=== PATIENT | female | born 1935 | race Caucasian/White ===

== ENCOUNTER 2019-01-31 16:17 | Emergency (ER) | payer MEDICARE, OTHER ==
--- NOTE | 2019-01-31 17:11 | CT ---
CT OF THE PELVIS WITHOUT IV CONTRAST INDICATION: Fall with tailbone plane pain COMPARISON: None FINDINGS: Pelvis: Small and large bowel: Bilateral retained stool within the colon Appendix:Not definitely seen Bladder: Normal. Rectal and perirectal soft tissues:Normal. Reproductive structures: Surgically absent Free fluid in pelvis: No free fluid is evident. Lymphadenopathy pelvis: No lymphadenopathy is evident. Osseous structures: There is diffuse osteopenia. No acute fracture or subluxation demonstrated. Ther e is scattered degenerative and osteoarthritic changes. Soft tissues:Normal. IMPRESSION: 1. No acute fracture or subluxation demonstrated. Diffuse osteopenia.
--- NOTE | 2019-01-31 17:16 | CT ---
CT LUMBAR SPINE NONCONTRAST: 01/31/19 HISTORY: Back injury. FINDINGS: There is severe leftward convexed rotatory scoliotic curvature. Vertebral body heights are maintained . Multilevel degenerative changes. Disc space narrowing, most pronounced at the L2-3 level. Posterior disc bulges most pronounced at the L4-5 and L5-S1 levels. Minimal degenerative spondylolisthesis at the lumbosacral junction. No acute fracture or dislocation. Osseous structures are demineralized. Jace cification within the arterial structures. IMPRESSION: Prominent degenerative changes of the lumbar spine. No acute osseous abnormalities are demonstrated. No evidence of compression fracture. Osteoporosis. Atherosclerosis. POS: TPC
--- NOTE | 2019-01-31 17:33 | RAD ---
XR Hand Lt 3 View STANDARD: 01/31/2019 4:34 PM CLINICAL INDICATION: Fall with hand pain COMPARISON: None. FINDINGS: Bones: There is diffuse osteopenia. Joints: There is scattered osteoarthrosis most severe at the first CMC joint. There is chondrocalcino sis involving the radiocarpal and ulnocarpal joints. Soft Tissue: There are scattered vascular calcifications. IMPRESSION: No acute osseous abnormality..
[2019-01-31] MEDS ORDERED: HYDROcodone/Acetaminophen 5/325 mg Tablet ONE (17:34)
[2019-01-31] MEDS ORDERED: Adacel (T-DAP) 0.5 ML SYRINGE ONE (17:34)
== END 2019-01-31 18:22 | disposition home or self-care (01) ==
LOC: ERS 16:17
DX: S30.0XXA Contusion of lower back and pelvis, initial encounter (principal); S60.222A Contusion of left hand, initial encounter; S50.312A Abrasion of left elbow, initial encounter; I48.91 Unspecified atrial fibrillation; I10 Essential (primary) hypertension; Z87.891 Personal history of nicotine dependence; Z79.899 Other long term (current) drug therapy; Z79.01 Long term (current) use of anticoagulants; Z23 Encounter for immunization; W18.30XA Fall on same level, unspecified, initial encounter
CPT/HCPCS: 72131; 72192; 90471; 90715; 93005

== ENCOUNTER 2019-03-28 11:27 | Inpatient (IN) | payer MEDICARE, OTHER ==
[2019-03-28] MEDS ORDERED: Furosemide 40 MG/4 ML VIAL ONE (12:08)
--- NOTE | 2019-03-28 12:11 | RAD ---
CHEST 1 VIEW: Date: 03/28/19 HISTORY: Shortness of breath. COMPARISON: 06/28/06. FINDINGS: Prominent cardiomegaly. Prominent proximal pulmonary artery segments bilaterally raising concern for chronic pulmonary artery hypertension. Bilateral costophrenic angle blunting, evidence for pleural ef fusion/pleural thickening. Increased linear and interstitial markings bilaterally with evidence for s ome hyperinflation. No evidence for confluent lobar pneumonia. IMPRESSION: Cardiomegaly with scattered linear and interstitial markings bilaterally and costophrenic angle blunt ing. Conceivably this could all represent chronic lung disease, although some degree of acute interst itial edema or even pneumonitis is a consideration. Depending upon concern, short-term follow-up to i nclude PA and lateral chest might be of benefit. POS: TPC
[2019-03-28 13:06] LABS: #Basophils 0.1 thou/uL (0.0-0.2); #Eosinphils 0.1 thou/uL (0.0-0.7); #Monocytes 0.5 thou/uL (0.11-0.59); #Neutrophils 3.5 thou/uL (1.40-6.50); %Basophils 1.1 % (0.0-1.0); %Eosinophils 2.2 % (0.0-10.0); %Lymphocytes 19.2 % (21.0-51.0); %Monocytes 10.1 % (0.0-10.0); %Neutrophils 67.3 % (42.0-75.0); Hemoglobin 12.5 g/dL (12.0-16.0); Mean Corpuscular HGB CONC 31.9 g/dL (32.0-36.0); Mean Corpuscular Hemoglobin 35.3 pg (27.0-31.0); Mean Platelet Volume 9.1 fL (7.4-10.4); Platelet Count 127 thou/uL (130-400); RBC Distribution Width 13.1 % (11.5-14.5); Red Blood Cell (RBC) Count 3.54 mill/uL (4.20-5.40); White Blood Cell (WBC) Count 5.2 thou/uL (4.8-10.8)
[2019-03-28 13:09] LABS: INR-International Normal Ratio 2.6; PTT 31.3 SEC (22.9-36.1); Prothrombin Time 27.5 SEC (12.0-14.7)
[2019-03-28 13:17] LABS: MDiff Complete? YES; Macrocytosis SLIGHT = 6-15 cells (100X) (0-5/hpf); Platelet Morphology Comment Appears Decreased
[2019-03-28 13:22] LABS: ALT (SGPT) 15 U/L (8-55); AST (SGOT) 24 U/L (5-34); Albumin 3.3 g/dL (3.4-4.8); Alkaline Phosphatase 86 U/L (40-110); Anion Gap 13 mmol/L (10-20); BUN (Urea Nitrogen) 19 mg/dL (9.8-20.1); Bilirubin, Total 1.3 mg/dL (0.2-1.2); Calc. Creatinine Clearance 0 mL/min (70-130); Calcium 8.9 mg/dL (7.8-10.44); Carbon Dioxide 31 mmol/L (23-31); Chloride 105 mmol/L (98-107); Estimated GFR-MDRD 56; Globulin 3.7 g/dL (2.4-3.5); Glucose 113 mg/dL (83-110); Potassium 3.6 mmol/L (3.5-5.1); Sodium 145 mmol/L (136-145)
--- NOTE | 2019-03-28 14:58 | PDOC.HHP ---
Hospitalist HPI - History of Present Illness Shortness of breath; weight gain History of Present Illness: 83 yo with Anton on coumadin presented to ER due to shortness of breath. 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 She has home health. She was found to have crepitations in her lungs and recommended to go to ER. She reports worsening SOB x 2 week. SOB is with minimal exertion and relieved with rest and sitting down. No orthopnea or PND. Reports 10 lb weight gain over the past 2 weeks. Reports swelling in her legs. No sick contacts or recent travel history. Uses a walker to ambulate. No fever, chills, CP. Reports palpitations with exertion. No lightheadedness, burning or pain with urination. No rash or bruising. No wheezing. Reports cough with cream sputum. No blood in sputum, stool or urine. Reports constipation. No nausea, vomiting or diarrhea. No abd. pain. She has never seen a naturalization examiner. ED Course: She has been given 20 mg IV lasix with 2L urine output so far. Hospitalist ROS - Review of Systems All other systems reviewed; all pertinent +/- noted in HPI/Subj Hospitalist History - Past Medical History Source: patient, family Cardiac: reports: AFIB, HTN - Past Surgical History Past Surgical History: reports: Hysterectomy, Total Knee Replacement (bilateral) - Family History Family History: reports: no pertinent history (reviewed) - Social History Smoking Status: Former smoker Tobacco Type: cigarettes Alcohol: reports: None Drugs: reports: none Living Situation: With Family Activity level: uses cane/walker - Exam General Appearance: awake alert, ill appearing Eye: PERRL, anicteric sclera ENT: normocephalic atraumatic, no oropharyngeal lesions, moist mucosa Neck: supple, symmetric, no thyromegaly, no lymphadenopathy Heart: no gallops, no rubs, normal peripheral pulses, irregular Heart - other findings: 2+ bilateral pitting pedal edema Respiratory: no wheezes, normal chest expansion (not using accessory muscles of respiration), no tachypnea, rales (crepitations in biltaral lower lobes) Gastrointestinal: soft, non-tender, non-distended, normal bowel sounds, no palpable masses, no hepatomegaly, no splenomegaly Extremities: no cyanosis, no clubbing, 2+ LE edema Skin: normal turgor, no lesions, no rashes Neurological: cranial nerve grossly intact, normal sensation to touch, no focal deficits, no new deficit Musculoskeletal: normal tone, normal strength, no muscle wasting Psychiatric: normal affect, normal behavior, A&O x 3 Hospitalist Results - Labs Result Diagrams: 03/28/19 12:45 03/28/19 12:45 Lab results: WBC 5.2 thou/uL (4.8-10.8) 03/28/19 12:45 Hgb 12.5 g/dL (12.0-16.0) 03/28/19 12:45 Hct 39.2 % (36.0-47.0) 03/28/19 12:45 MCV 111.0 fL (78.0-98.0) H 03/28/19 12:45 Plt Count 127 thou/uL (130-400) L 03/28/19 12:45 Neutrophils % 67.3 % (42.0-75.0) 03/28/19 12:45 Sodium 145 mmol/L (136-145) 03/28/19 12:45 Potassium 3.6 mmol/L (3.5-5.1) 03/28/19 12:45 Chloride 105 mmol/L (98-107) 03/28/19 12:45 Carbon Dioxide 31 mmol/L (23-31) 03/28/19 12:45 BUN 19 mg/dL (9.8-20.1) 03/28/19 12:45 Creatinine 0.95 mg/dL (0.6-1.1) 03/28/19 12:45 Glucose 113 mg/dL (83-110) H 03/28/19 12:45 Calcium 8.9 mg/dL (7.8-10.44) 03/28/19 12:45 Total Bilirubin 1.3 mg/dL (0.2-1.2) H 03/28/19 12:45 AST 24 U/L (5-34) 03/28/19 12:45 ALT 15 U/L (8-55) 03/28/19 12:45 Alkaline Phosphatase 86 U/L (40-110) 03/28/19 12:45 Troponin I 0.025 ng/mL (< 0.028) 03/28/19 12:45 B-Natriuretic Peptide 561.8 pg/mL (0-100) H 03/28/19 12:45 Serum Total Protein 7.0 g/dL (6.0-8.3) 03/28/19 12:45 Albumin 3.3 g/dL (3.4-4.8) L 03/28/19 12:45 - EKG Interpretation EKG: Personally reviewed - Atrial fibrillation rate controlled; T-inversions in leads III & aVF - Radiology Interpretation Chest x-ray Status: image reviewed by me (Bilateral CP angle blunting and interstitial markings) Hospitalist H&P A/P - Problem (1) CHF (congestive heart failure) Code(s): I50.9 - HEART FAILURE, UNSPECIFIED Status: Acute Qualifiers: Heart failure type: unspecified Heart failure chronicity: acute Qualified Code(s): I50.9 - Heart failure, unspecified Assessment and Plan: Worsening SOB with pedal edema and weight gain Admit to inpatient status Expected to stay at least 2 midnights High risk due to risk of lethal arrhythmias and need for IV diuretics Continue iv lasix 20 mg BID Salt and fluid restricted diet Daily weights Strict I/Os Cardio consult ECHO Cycle troponins (2) Atrial fibrillation Code(s): I48.91 - UNSPECIFIED ATRIAL FIBRILLATION Status: Chronic Qualifiers: Atrial fibrillation type: longstanding persistent Qualified Code(s): I48.11 - Longstanding persistent atrial fibrillation Assessment and Plan: Rate controlled on coumadin Continue coumadin and rate control meds Cardio consulted (3) Macrocytosis Code(s): D75.89 - OTHER SPECIFIED DISEASES OF BLOOD AND BLOOD-FORMING ORGANS Status: Chronic Assessment and Plan: Will check B12, folate levels and TSH level (4) HTN (hypertension) Code(s): I10 - ESSENTIAL (PRIMARY) HYPERTENSION Status: Chronic Qualifiers: Hypertension type: essential hypertension Qualified Code(s): I10 - Essential (primary) hypertension Assessment and Plan: Stable BP Hold HTN meds as the patient will be on IV diuretics - Plan Plan: CODE STATUS - Wants CPR for cardiac arrest but refuses intubation in case of respiratory distress
[2019-03-28 16:55] LABS: Troponin I 0.029 ng/mL (< 0.028)
[2019-03-28] MEDS ORDERED: Furosemide 20 MG/2 ML VIAL SLOW IVP SCH ×2 (22:45→23:59)
[2019-03-28] MEDS ORDERED: Heparin 5,000 UNITS/ML VIAL SC SCH (22:45)
[2019-03-29 00:17] LABS: Troponin I 0.013 ng/mL (< 0.028)
[2019-03-29 05:26] LABS: INR-International Normal Ratio 2.7; Prothrombin Time 28.5 SEC (12.0-14.7)
[2019-03-29 05:28] LABS: #Eosinphils 0.1 thou/uL (0.0-0.7); #Lymphocytes 1.1 thou/uL (1.20-3.40); #Monocytes 0.4 thou/uL (0.11-0.59); %Basophils 0.2 % (0.0-1.0); %Eosinophils 2.1 % (0.0-10.0); %Monocytes 9.6 % (0.0-10.0); %Neutrophils 65.1 % (42.0-75.0); Hemoglobin 11.6 g/dL (12.0-16.0); Mean Corpuscular HGB CONC 32.8 g/dL (32.0-36.0); Mean Corpuscular Hemoglobin 36.2 pg (27.0-31.0); Mean Platelet Volume 9.5 fL (7.4-10.4); Platelet Count 115 thou/uL (130-400); Red Blood Cell (RBC) Count 3.19 mill/uL (4.20-5.40); White Blood Cell (WBC) Count 4.6 thou/uL (4.8-10.8)
[2019-03-29 05:32] LABS: ALT (SGPT) 12 U/L (8-55); AST (SGOT) 23 U/L (5-34); Albumin 2.8 g/dL (3.4-4.8); Alkaline Phosphatase 74 U/L (40-110); Anion Gap 13 mmol/L (10-20); BUN (Urea Nitrogen) 15 mg/dL (9.8-20.1); Bilirubin, Total 1.2 mg/dL (0.2-1.2); Calc. Creatinine Clearance 68 mL/min (70-130); Calcium 8.2 mg/dL (7.8-10.44); Carbon Dioxide 33 mmol/L (23-31); Chloride 101 mmol/L (98-107); Estimated GFR-MDRD 70; Globulin 3.4 g/dL (2.4-3.5); Glucose 82 mg/dL (83-110); Magnesium 1.6 mg/dL (1.6-2.6); Potassium 3.2 mmol/L (3.5-5.1); Protein, Total 6.2 g/dL (6.0-8.3); Sodium 144 mmol/L (136-145)
[2019-03-29 05:35] LABS: Troponin I 0.025 ng/mL (< 0.028)
[2019-03-29] MEDS: Furosemide 20 MG/2 ML VIAL SLOW IVP SCH ×2 (05:45→13:15)
[2019-03-29] MEDS: Heparin 5,000 UNITS/ML VIAL SC SCH ×2 (08:16→15:31)
[2019-03-29] MEDS: Warfarin Sodium 5 MG TAB PO SCH (08:26)
[2019-03-29] MEDS ORDERED: Potassium Chloride 20 MEQ TAB PO SCH (08:30)
--- NOTE | 2019-03-29 12:29 | PDOC.HOSPP ---
- Subjective Encounter Date: 03/29/19 Encounter Time: 12:00 Subjective: Reports that her breathing is better and that she has a very good urine output. Denies chest pain. Accompanied by her niece at bedside who states that patient was recently diagnosed with pulmonary fibrosis by PCP and had a recent ECHO showing MR. Grace denies lightheadedness. - Objective Vital Signs & Weight: Vital Signs (12 hours) Temp Pulse Resp BP Pulse Ox 03/29/19 11:13 97.5 F L 74 18 114/68 94 L 03/29/19 08:24 97.4 F L 84 15 147/77 H 94 L 03/29/19 05:46 74 17 117/67 96 03/29/19 03:19 98.3 F 80 18 111/61 95 03/29/19 02:05 76 20 115/64 94 L Weight Weight 175 lb 14.4 oz I&O: 03/28/19 03/29/19 03/30/19 06:59 06:59 06:59 Intake Total 120 Output Total 800 Balance -680 Result Diagrams: 03/29/19 04:39 03/29/19 04:39 Hospitalist ROS - Medication Medications: Active Medications Generic Name Dose Route Start Last Admin Trade Name Freq PRN Reason Stop Dose Admin Furosemide 20 mg 03/29/19 06:00 03/29/19 05:45 Lasix SLOW IVP 20 mg 0600,1400 GENI Administration Heparin Sodium (Porcine) 5,000 units 03/29/19 09:00 03/29/19 08:16 Heparin SC 5,000 units TID GENI Administration Metoprolol Succinate 50 mg 03/29/19 09:00 03/29/19 08:26 Toprol Xl PO 50 mg DAILY GENI Administration Warfarin Sodium 5 mg 03/29/19 09:00 03/29/19 08:26 Coumadin PO 5 mg DAILY GENI Administration - Exam General Appearance: NAD, awake alert Eye: PERRL, anicteric sclera ENT: normocephalic atraumatic, no oropharyngeal lesions, moist mucosa Neck: supple, no thyromegaly, no lymphadenopathy Heart: RRR, no murmur, no gallops, normal peripheral pulses Heart - other findings: 1+ bilateral pitting pedal edema Respiratory: no wheezes, no tachypnea, rales (Left lower lobe crepitations) Respiratory - other findings: not using accessory muscles Gastrointestinal: soft, non-tender, non-distended, normal bowel sounds Hosp A/P (1) CHF (congestive heart failure) Code(s): I50.9 - HEART FAILURE, UNSPECIFIED Status: Acute Qualifiers: Heart failure type: unspecified Heart failure chronicity: acute Qualified Code(s): I50.9 - Heart failure, unspecified (2) Atrial fibrillation Code(s): I48.91 - UNSPECIFIED ATRIAL FIBRILLATION Status: Chronic Qualifiers: Atrial fibrillation type: longstanding persistent Qualified Code(s): I48.11 - Longstanding persistent atrial fibrillation (3) Macrocytosis Code(s): D75.89 - OTHER SPECIFIED DISEASES OF BLOOD AND BLOOD-FORMING ORGANS Status: Chronic (4) HTN (hypertension) Code(s): I10 - ESSENTIAL (PRIMARY) HYPERTENSION Status: Chronic Qualifiers: Hypertension type: essential hypertension Qualified Code(s): I10 - Essential (primary) hypertension - Plan plan discussed w/ family, out of bed/ambulate Hospitalist A/P - Problem (1) CHF (congestive heart failure) Code(s): I50.9 - HEART FAILURE, UNSPECIFIED Status: Acute Qualifiers: Heart failure type: unspecified Heart failure chronicity: acute Qualified Code(s): I50.9 - Heart failure, unspecified Assessment and Plan: Continue iv lasix 20 mg BID Salt and fluid restricted diet Daily weights Strict I/Os Cardio consult pending ECHO pending (2) Atrial fibrillation Code(s): I48.91 - UNSPECIFIED ATRIAL FIBRILLATION Status: Chronic Qualifiers: Atrial fibrillation type: longstanding persistent Qualified Code(s): I48.11 - Longstanding persistent atrial fibrillation Assessment and Plan: Rate controlled on coumadin Continue coumadin and rate control meds Cardio consulted. ECHO pending (3) Macrocytosis Code(s): D75.89 - OTHER SPECIFIED DISEASES OF BLOOD AND BLOOD-FORMING ORGANS Status: Chronic Assessment and Plan: Folate level normal B12 borderline low (4) HTN (hypertension) Code(s): I10 - ESSENTIAL (PRIMARY) HYPERTENSION Status: Chronic Qualifiers: Hypertension type: essential hypertension Qualified Code(s): I10 - Essential (primary) hypertension Assessment and Plan: Stable BP Hold HTN meds as the patient is on IV diuretics 5. B 12 insufficiency Level of 233 that is low normal Begin PO supplementation 6. Suspected pulmonary fibrosis Niece reports patient recently had ECHO and has been diagnosed with pulmonary fibrosis with referral to pulm Will obtain those records from PCP office
--- NOTE | 2019-03-29 15:38 | CON ---
DATE OF CONSULTATION: REASON FOR CONSULTATION: ?congestive heart failure. HISTORY OF PRESENT ILLNESS: Ms. Leos is an 83-year-old woman, who is recently diagnosed per her daughter with pulmonary fibrosis. She was seen and evaluated by a nurse recently from [facility]. She was found to have crackles. She had no significant changes in symptoms, noted over the last several weeks to months per daughter. Based on the new findings, it was recommended, she proceeded to the emergency room. The daughter states they were recently diagnosed with pulmonary fibrosis. This is known on the recent chest x-ray. She states she has had no significant changes in weight. No lower extremity edema, PND, or orthopnea. They had a Pulmonary consultation scheduled for May. PAST MEDICAL HISTORY: As above including atrial fibrillation status post ablation 6 years ago, primary private equity associate unknown, this was performed in [place]; hysterectomy; knee replacement; hypertension. SOCIAL HISTORY: No current tobacco or alcohol use. HOME MEDICATIONS: Include; 1. Coumadin. 2. Lasix. 3. Metoprolol. ALLERGIES: NONE. REVIEW OF SYSTEMS: A 10-point review of systems is reviewed and as above, otherwise negative. PHYSICAL EXAMINATION: GENERAL: Patient is a pleasant woman, who is in no acute distress. The patient appears their stated age. VITAL SIGNS: Blood pressure 114/68, pulse 74, temperature 97.5. NEUROLOGIC: The patient is alert and oriented x3 with no focal neurologic deficits. HEENT: Sclerae without icterus. Mouth has moist mucous membranes with normal pallor. NECK: No JVD. Carotid upstroke brisk. No bruits bilaterally. LUNGS: Mild crackles noted bilaterally. BACK: No scoliosis or kyphosis. CARDIAC: Irregularly irregular. ABDOMEN: Soft, nontender, nondistended. No peritoneal signs present. No hepatosplenomegaly. No abnormal striae. EXTREMITIES: 2+ femoral and 2+ dorsalis pedis pulses. No cyanosis, clubbing, or edema. SKIN: No gross abnormalities. PERTINENT LABORATORY DATA: Hemoglobin 11.6, white blood cell count 4.6. Creatinine 0.79, albumin 2.8. BNP of 561. IMPRESSION: 1. Shortness of breath. 2. Pulmonary fibrosis. 3. Wide-complex tachycardia on telemetry monitoring. 4. Atrial fibrillation. RECOMMENDATIONS: Ms. Leos's symptoms on recent physical exam likely represent pulmonary fibrosis, but cannot completely exclude diastolic dysfunction. Echo is currently pending. She also has had nonsustained VT, but may also be atrial fibrillation with aberrancy. Overall after discussing this with her daughter and the patient, they have opted for conservative therapy. They are not interested in proceeding with a more aggressive approach such as noninvasive stress study or even coronary angiography. They would like to pursue medical therapy first and foremost. At this point, we will continue with anticoagulation therapy in addition to beta-maury therapy. May consider high-resolution CT scan to assess for pulmonary fibrosis. We will leave the discretion to Primary Team. I would also recommend Roberto. Job ID: [id number]
--- NOTE | 2019-03-29 16:27 | ULT ---
DOPPLER VENOUS ULTRASOUND BOTH LOWER EXTREMITIES: 03/29/19 INDICATION: History of bilateral lower extremity edema. TECHNIQUE: Gonzalez scale, color Doppler, and vascular duplex with spectral analysis was performed of the deep venou s structures of both lower extremities. The common femoral vein, superficial femoral vein, popliteal vein, posterior tibial vein, proximal greater saphenous, and proximal profunda veins were assessed bi laterally. FINDINGS: There is normal compression, flow and augmentation seen within the deep venous structures of both low er extremities. IMPRESSION: No evidence of DVT within both lower extremities. POS: TPC
[2019-03-30 04:51] LABS: #Eosinphils 0.1 thou/uL (0.0-0.7); #Lymphocytes 1.2 thou/uL (1.20-3.40); #Monocytes 0.5 thou/uL (0.11-0.59); #Neutrophils 2.8 thou/uL (1.40-6.50); %Basophils 0.3 % (0.0-1.0); %Eosinophils 2.8 % (0.0-10.0); %Lymphocytes 24.9 % (21.0-51.0); %Monocytes 11.6 % (0.0-10.0); %Neutrophils 60.4 % (42.0-75.0); Hemoglobin 11.6 g/dL (12.0-16.0); Mean Corpuscular HGB CONC 32.7 g/dL (32.0-36.0); Mean Corpuscular Hemoglobin 36.3 pg (27.0-31.0); Mean Platelet Volume 8.9 fL (7.4-10.4); Platelet Count 110 thou/uL (130-400); RBC Distribution Width 12.6 % (11.5-14.5); Red Blood Cell (RBC) Count 3.19 mill/uL (4.20-5.40); White Blood Cell (WBC) Count 4.7 thou/uL (4.8-10.8)
[2019-03-30 04:53] LABS: INR-International Normal Ratio 2.6; Prothrombin Time 27.5 SEC (12.0-14.7)
[2019-03-30 05:08] LABS: Anion Gap 13 mmol/L (10-20); BUN (Urea Nitrogen) 17 mg/dL (9.8-20.1); Calc. Creatinine Clearance 66 mL/min (70-130); Calcium 8.2 mg/dL (7.8-10.44); Carbon Dioxide 33 mmol/L (23-31); Chloride 97 mmol/L (98-107); Estimated GFR-MDRD 68; Glucose 78 mg/dL (83-110); Potassium 3.6 mmol/L (3.5-5.1); Sodium 139 mmol/L (136-145)
[2019-03-30] MEDS: Cyanocobalamin (Vitamin B-12) 1,000 MCG TAB PO SCH (09:05)
[2019-03-30] MEDS: Warfarin Sodium 5 MG TAB PO SCH (09:05)
[2019-03-30] MEDS: Furosemide 20 MG TAB PO SCH (09:05)
--- NOTE | 2019-03-30 09:37 | PDOC.HOSPP ---
- Subjective Encounter Date: 03/30/19 Encounter Time: 09:40 Subjective: Patient had borderline low BP yesterday. Lasix has been discontinued. She reports that her breathing is better. No nausea or vomiting. Reports that the swelling in her legs is better. - Objective Vital Signs & Weight: Vital Signs (12 hours) Temp Pulse Resp BP BP Pulse Ox 03/30/19 07:23 97 03/30/19 07:20 97.4 F L 89 16 120/68 97 03/30/19 03:21 97.5 F L 79 18 117/63 92 L 03/30/19 00:00 98.1 F 85 16 106/55 L 92 L Weight Weight 176 lb 4 oz I&O: 03/29/19 03/30/19 03/31/19 06:59 06:59 06:59 Intake Total 120 960 Output Total 800 1600 Balance -680 -640 Result Diagrams: 03/30/19 04:32 03/30/19 04:32 Radiology Reviewed by me: No (ECHO with preserved EF; Mild LV hypertrophy; RVSP 65) Hospitalist ROS - Medication Medications: Active Medications Generic Name Dose Route Start Last Admin Trade Name Freq PRN Reason Stop Dose Admin Cyanocobalamin 1,000 mcg 03/30/19 09:00 03/30/19 09:05 Vitamin B-12 PO 1,000 mcg DAILY GENI Administration Furosemide 20 mg 03/30/19 09:00 03/30/19 09:05 Lasix PO 20 mg DAILY GENI Administration Metoprolol Succinate 50 mg 03/29/19 09:00 03/30/19 09:05 Toprol Xl PO 50 mg DAILY GENI Administration Warfarin Sodium 5 mg 03/29/19 09:00 03/30/19 09:05 Coumadin PO 5 mg DAILY GENI Administration - Exam General Appearance: NAD, awake alert Eye: PERRL, anicteric sclera ENT: normocephalic atraumatic, no oropharyngeal lesions, moist mucosa Neck: supple, no thyromegaly, no lymphadenopathy Heart: no murmur, no gallops, normal peripheral pulses Heart - other findings: 1+ pitting pedal edema bilaterally Respiratory: CTAB, no ronchi, normal chest expansion, no tachypnea Gastrointestinal: soft, non-tender, non-distended, normal bowel sounds Hosp A/P (1) CHF (congestive heart failure) Code(s): I50.9 - HEART FAILURE, UNSPECIFIED Status: Acute Qualifiers: Heart failure type: unspecified Heart failure chronicity: acute Qualified Code(s): I50.9 - Heart failure, unspecified (2) Atrial fibrillation Code(s): I48.91 - UNSPECIFIED ATRIAL FIBRILLATION Status: Chronic Qualifiers: Atrial fibrillation type: longstanding persistent Qualified Code(s): I48.11 - Longstanding persistent atrial fibrillation (3) Macrocytosis Code(s): D75.89 - OTHER SPECIFIED DISEASES OF BLOOD AND BLOOD-FORMING ORGANS Status: Chronic (4) HTN (hypertension) Code(s): I10 - ESSENTIAL (PRIMARY) HYPERTENSION Status: Chronic Qualifiers: Hypertension type: essential hypertension Qualified Code(s): I10 - Essential (primary) hypertension - Plan PT/OT, DVT proph w/lovenox Hospitalist A/P - Problem (1) CHF (congestive heart failure) Code(s): I50.9 - HEART FAILURE, UNSPECIFIED Status: Acute Qualifiers: Heart failure type: unspecified Heart failure chronicity: acute Qualified Code(s): I50.9 - Heart failure, unspecified Assessment and Plan: Lasix IV DC yesterday due to low BP Start PO lasix today Salt and fluid restricted diet Daily weights Strict I/Os ECHO with preserved EF and RVSP elevation suggestive pulm. HTN Cardio states her SOB & fluid overload likely related to pulm. fibrosis and recommended pulm. consult (2) Atrial fibrillation Code(s): I48.91 - UNSPECIFIED ATRIAL FIBRILLATION Status: Chronic Qualifiers: Atrial fibrillation type: longstanding persistent Qualified Code(s): I48.11 - Longstanding persistent atrial fibrillation Assessment and Plan: Rate controlled on coumadin INR therapeutic Continue coumadin and rate control meds Toprol XL dose reduced to 25 mg daily by cardio today Cardio on board (3) Macrocytosis Code(s): D75.89 - OTHER SPECIFIED DISEASES OF BLOOD AND BLOOD-FORMING ORGANS Status: Chronic Assessment and Plan: Folate level normal B12 borderline low On B12 supplementation (4) HTN (hypertension) Code(s): I10 - ESSENTIAL (PRIMARY) HYPERTENSION Status: Chronic Qualifiers: Hypertension type: essential hypertension Qualified Code(s): I10 - Essential (primary) hypertension Assessment and Plan: Had borderline low BP yesterday Hold HTN meds Continue Toprol XL 5. B 12 insufficiency Level of 233 that is low normal Continue PO supplementation 6. Suspected pulmonary fibrosis Niece reports patient recently had ECHO and has been diagnosed with pulmonary fibrosis with referral to pulm Cardio recommends further evaluation of the same Will request pulm. consultation Possible cor pulmonale?
--- NOTE | 2019-03-30 15:34 | CON ---
DATE OF CONSULTATION: 03/30/2019 This encompassed 75 minutes of time, of that time, greater than 50% time was spent with the patient and/or the patient's unit in the hospital. REASON FOR CONSULTATION: Possible idiopathic pulmonary fibrosis. HISTORY OF PRESENT ILLNESS: The patient is an 83-year-old female, who presented to the hospital on 03/28/2019 and was admitted to the hospitalist group. Principal complaint was shortness of breath. Shortness of breath has been present for a number of months. She has seen Dr. Vernon Perry at the [facility] and was told she might have pulmonary fibrosis and she has an appointment to see Dr. Jaylen Olson, who is a pulmonary physician at [facility], in a couple of weeks. At this point, she has had nothing besides a chest x-ray at that point with the diagnosis of pulmonary fibrosis. She has had no CT of the chest. She complains of dyspnea on exertion. She has no cough. She has no previous history of asbestos exposure, connective tissue disease, or pneumonia. PAST MEDICAL HISTORY: 1. Hypertension. 2. Atrial fibrillation. PAST SURGICAL HISTORY: 1. Hysterectomy. 2. Total knee replacement. FAMILY MEDICAL HISTORY: Unremarkable. SOCIAL HISTORY: The patient quit smoking 40 years ago. She stays at home, takes care of her , who has Alzheimer's disease. She took care of her family and did not have any jobs that would have exposed her to noxious substances. REVIEW OF SYSTEMS: Remarkable for the shortness of breath. Otherwise, 12-point review of systems is negative. PHYSICAL EXAMINATION: VITAL SIGNS: Temperature 97.8, pulse 73, respirations 16, O2 saturation 93% on room air, and blood pressure 113/68. HEENT: Unremarkable. NECK: Without adenopathy or JVD. LUNGS: Inspiratory crackles at both bases, not so apparent anteriorly but definite posteriorly. CARDIOVASCULAR: S1 and S2. Regular. ABDOMEN: Soft, nontender, and nondistended. EXTREMITIES: No clubbing, cyanosis, or edema. LABORATORY DATA: White blood cell count 4.7, hematocrit 35.5, and platelet count 110. INR is 2.6. Sodium 139, potassium 3.6, chloride 97, CO2 of 33, BUN 17, creatinine 0.8, and glucose 78. IMAGING DATA: X-ray shows chronic interstitial changes bilaterally. A CT is pending. An echocardiogram demonstrates LVEF of 50% to 55%. [id number] elevated pulmonary artery pressure. ASSESSMENT: Possible interstitial lung disease. PLAN: The starting point would be to get a high-resolution CT of the chest and go from there. If it looks concerning for pulmonary fibrosis, then she will need further serological testing performed. We will follow with you. Job ID: [id number]
--- NOTE | 2019-03-30 17:54 | CT ---
HIGH RESOLUTION CHEST CT: 03/30/19 HISTORY: Interstitial pulmonary fibrosis. TECHNIQUE: Axial CT imaging at 1.25 mm intervals through the chest without contrast using high resolution protoc ol. FINDINGS: Technique utilized for this examination limits assessment for pulmonary nodules. Lack of contrast med ial limits assessment of the imaged viscera, vascular structures, and for lymphadenopathy. Probable i ncompletely imaged small cyst noted within the mid portion of the right lobe of the liver. The heart appears enlarged. Extensive coronary arterial calcification is noted. Trace nonspecific bilateral ple ural effusions are noted. There is small volume fluid in the superior pericardial recess. There is sc attered atherosclerotic calcification of the thoracic aorta. No pneumothorax evident. Pulmonary arterial vasculature is dilated suggesting secondary pulmonary arterial hypertension. LEFT UPPER LOBE: Peripheral subpleural cystic changes noted within the lingula with lingular bronchiectasis and periph eral fibrotic change. LEFT LOWER LOBE: Inferior left lower lobe bronchiectasis with peripheral coarse increased linear interstitial density. RIGHT LOWER LOBE: Inferior right lower lobe peripheral bronchiectasis and coarse linear interstitial thickening. RIGHT UPPER LOBE: Extensive peripheral increased linear interstitial density with subpleural cystic/fibrotic change, mo st prominent within the inferior lateral aspect of the right upper lobe. RIGHT MIDDLE LOBE: Coarse increased linear interstitial density with inferior posterior bronchiectasis and peripheral lake bpleural cystic change. Limited assessment of the osseous structures demonstrates no worrisome lytic or blastic bone lesion. IMPRESSION: Pulmonary parenchymal fibrotic changes consistent with the provided history of interstitial pulmonary fibrosis. Dilation of the pulmonary arterial vasculature suggest secondary pulmonary arterial hypert rophy. POS: [facility]
[2019-03-31 04:52] LABS: #Eosinphils 0.1 thou/uL (0.0-0.7); #Lymphocytes 1.2 thou/uL (1.20-3.40); #Monocytes 0.5 thou/uL (0.11-0.59); #Neutrophils 2.8 thou/uL (1.40-6.50); %Basophils 0.9 % (0.0-1.0); %Eosinophils 2.7 % (0.0-10.0); %Lymphocytes 25.5 % (21.0-51.0); %Monocytes 11.1 % (0.0-10.0); %Neutrophils 59.8 % (42.0-75.0); Hemoglobin 12.1 g/dL (12.0-16.0); INR-International Normal Ratio 2.3; Mean Corpuscular HGB CONC 32.7 g/dL (32.0-36.0); Mean Corpuscular Hemoglobin 36.2 pg (27.0-31.0); Platelet Count 122 thou/uL (130-400); Prothrombin Time 25.5 SEC (12.0-14.7); RBC Distribution Width 12.6 % (11.5-14.5); Red Blood Cell (RBC) Count 3.34 mill/uL (4.20-5.40); White Blood Cell (WBC) Count 4.6 thou/uL (4.8-10.8)
[2019-03-31 05:07] LABS: Anion Gap 12 mmol/L (10-20); BUN (Urea Nitrogen) 17 mg/dL (9.8-20.1); Calc. Creatinine Clearance 69 mL/min (70-130); Calcium 8.5 mg/dL (7.8-10.44); Carbon Dioxide 34 mmol/L (23-31); Chloride 98 mmol/L (98-107); Estimated GFR-MDRD 70; Glucose 81 mg/dL (83-110); Potassium 3.8 mmol/L (3.5-5.1); Sodium 140 mmol/L (136-145)
[2019-03-31] MEDS: Warfarin Sodium 5 MG TAB PO SCH (08:53)
[2019-03-31] MEDS: Cyanocobalamin (Vitamin B-12) 1,000 MCG TAB PO SCH (08:54)
[2019-03-31] MEDS: Furosemide 20 MG TAB PO SCH (09:04)
--- NOTE | 2019-03-31 13:13 | PDOC.EVN ---
Event Note - Event Note Event Note: 0945-Notified by primary nurse patient systolics 70s-80s, in [place]. Hold furosemide, metoprolol. Order for NS bolus 250ml x1 to be given now.
--- NOTE | 2019-03-31 13:28 | PDOC.HOSPP ---
- Subjective Encounter Date: 03/31/19 Encounter Time: 13:26 Subjective: Pt. reports her breathing is better. She is currently on warfarin for A.fib and is tired of getting repeat blood work for INR monitoring. Seen by pulm. and had CT chest yesterday. No fever, chills. Had low BP earlier today and lasix has been discontinued. - Objective Vital Signs & Weight: Vital Signs (12 hours) Temp Pulse Resp BP BP BP BP 03/31/19 11:31 98.9 F 80 17 106/59 L 03/31/19 10:04 91 126/67 03/31/19 09:39 83 87/52 L 03/31/19 08:56 71 89/52 L 03/31/19 07:31 97.3 F L 84 17 100/57 L 03/31/19 05:15 110/60 03/31/19 04:02 97.4 F L 97 14 Pulse Ox 03/31/19 11:31 93 L 03/31/19 10:04 03/31/19 09:39 03/31/19 08:56 03/31/19 07:31 96 03/31/19 05:15 98 03/31/19 04:02 91 L Weight Weight 179 lb 9.6 oz I&O: 03/30/19 03/31/19 04/01/19 06:59 06:59 06:59 Intake Total 960 1360 Output Total 1600 1200 Balance -640 160 Result Diagrams: 03/31/19 04:26 03/31/19 04:26 Radiology Reviewed by me: Yes (CT chest with pulmonary fibrosis) Hospitalist ROS - Medication Medications: Active Medications Generic Name Dose Route Start Last Admin Trade Name Freq PRN Reason Stop Dose Admin Cyanocobalamin 1,000 mcg 03/30/19 09:00 03/31/19 08:54 Vitamin B-12 PO 1,000 mcg DAILY GENI Administration Metoprolol Succinate 25 mg 03/31/19 09:00 03/31/19 09:05 Toprol Xl PO Not Given DAILY GENI - Exam General Appearance: NAD, awake alert Eye: PERRL, anicteric sclera ENT: normocephalic atraumatic, no oropharyngeal lesions, moist mucosa Neck: supple, symmetric, no thyromegaly, no lymphadenopathy Heart: RRR, no murmur, no gallops, no rubs, normal peripheral pulses Respiratory: no wheezes, normal chest expansion, rales (bilateral lower lobes) Gastrointestinal: soft, non-tender, non-distended, normal bowel sounds Hosp A/P (1) CHF (congestive heart failure) Code(s): I50.9 - HEART FAILURE, UNSPECIFIED Status: Acute Qualifiers: Heart failure type: unspecified Heart failure chronicity: acute Qualified Code(s): I50.9 - Heart failure, unspecified (2) Atrial fibrillation Code(s): I48.91 - UNSPECIFIED ATRIAL FIBRILLATION Status: Chronic Qualifiers: Atrial fibrillation type: longstanding persistent Qualified Code(s): I48.11 - Longstanding persistent atrial fibrillation (3) Macrocytosis Code(s): D75.89 - OTHER SPECIFIED DISEASES OF BLOOD AND BLOOD-FORMING ORGANS Status: Chronic (4) HTN (hypertension) Code(s): I10 - ESSENTIAL (PRIMARY) HYPERTENSION Status: Chronic Qualifiers: Hypertension type: essential hypertension Qualified Code(s): I10 - Essential (primary) hypertension (5) IPF (idiopathic pulmonary fibrosis) Code(s): J84.112 - IDIOPATHIC PULMONARY FIBROSIS Status: Chronic - Plan out of bed/ambulate Hospitalist A/P - Problem (1) CHF (congestive heart failure) Code(s): I50.9 - HEART FAILURE, UNSPECIFIED Status: Acute Qualifiers: Heart failure type: unspecified Heart failure chronicity: acute Qualified Code(s): I50.9 - Heart failure, unspecified Assessment and Plan: DC po lasix given her hypotension Given 250 cc fluid bolus by cardio earlier today Salt and fluid restricted diet Daily weights Strict I/Os (2) Atrial fibrillation Code(s): I48.91 - UNSPECIFIED ATRIAL FIBRILLATION Status: Chronic Qualifiers: Atrial fibrillation type: longstanding persistent Qualified Code(s): I48.11 - Longstanding persistent atrial fibrillation Assessment and Plan: Rate controlled on Toprol XL at 25 mg daily Case DW Dr. Cheung Patient and family counselled about NOACs. They requested DC warfarin and new meds Dr. Cheung recommended Eliquis 5 mg PO BID Will DC warfarin and start eliquis tomorrow. (3) Macrocytosis Code(s): D75.89 - OTHER SPECIFIED DISEASES OF BLOOD AND BLOOD-FORMING ORGANS Status: Chronic Assessment and Plan: Folate level normal B12 borderline low On B12 supplementation (4) HTN (hypertension) Code(s): I10 - ESSENTIAL (PRIMARY) HYPERTENSION Status: Chronic Qualifiers: Hypertension type: essential hypertension Qualified Code(s): I10 - Essential (primary) hypertension Assessment and Plan: DC lasix Continue Toprol XL 5. B 12 insufficiency Level of 233 that is low normal Continue PO supplementation 6. Idiopathic pulmonary fibrosis CT chest with IPF Pulm. on board Will perform room air saturation to determine if she needs home O2 Will need outpatient pulm. follow up
--- NOTE | 2019-03-31 15:42 | PRG ---
DATE OF SERVICE: 03/31/2019 SUBJECTIVE: The patient had a CT of the chest performed, which shows subpleural honeycombing particularly at the inferior aspects of her lung simental. She also has traction, interstitial changes. She has been told about this before I came in the room. Her three daughters were in the room and we all talked. OBJECTIVE: VITAL SIGNS: Today, her temperature is 98.9, pulse 80, respirations 17, O2 saturation 93% on , and blood pressure 106/59. HEENT: Unremarkable. NECK: No adenopathy or JVD. LUNGS: Inspiratory crackles bilaterally. CARDIAC: S1, S2, regular. ABDOMEN: Soft. EXTREMITIES: No edema. LABORATORY DATA: Labs were noted. ASSESSMENT: Idiopathic pulmonary fibrosis. RECOMMENDATIONS: I will go ahead and order some serologic studies. She needs to have a pulmonary function test performed sometime in the near future. She ultimately is going to follow up at [facility] as that is where she prefers to have her care. I have told her she could take these records over there. Job ID: [id number]
[2019-04-01 04:47] LABS: #Eosinphils 0.2 thou/uL (0.0-0.7); #Monocytes 0.6 thou/uL (0.11-0.59); #Neutrophils 2.9 thou/uL (1.40-6.50); %Basophils 0.7 % (0.0-1.0); %Eosinophils 3.4 % (0.0-10.0); %Lymphocytes 20.8 % (21.0-51.0); %Monocytes 11.9 % (0.0-10.0); %Neutrophils 63.3 % (42.0-75.0); Hemoglobin 11.7 g/dL (12.0-16.0); Mean Corpuscular HGB CONC 32.6 g/dL (32.0-36.0); Mean Corpuscular Hemoglobin 36.1 pg (27.0-31.0); Mean Platelet Volume 8.7 fL (7.4-10.4); Platelet Count 109 thou/uL (130-400); RBC Distribution Width 12.5 % (11.5-14.5); Red Blood Cell (RBC) Count 3.25 mill/uL (4.20-5.40); White Blood Cell (WBC) Count 4.6 thou/uL (4.8-10.8)
[2019-04-01 05:07] LABS: ALT (SGPT) 7 U/L (8-55); AST (SGOT) 18 U/L (5-34); Albumin 2.5 g/dL (3.4-4.8); Alkaline Phosphatase 65 U/L (40-110); Anion Gap 10 mmol/L (10-20); BUN (Urea Nitrogen) 14 mg/dL (9.8-20.1); Bilirubin, Total 1.1 mg/dL (0.2-1.2); Calc. Creatinine Clearance 74 mL/min (70-130); Calcium 8.3 mg/dL (7.8-10.44); Carbon Dioxide 33 mmol/L (23-31); Chloride 101 mmol/L (98-107); Estimated GFR-MDRD 73; Globulin 3.3 g/dL (2.4-3.5); Glucose 81 mg/dL (83-110); Potassium 3.7 mmol/L (3.5-5.1); Protein, Total 5.8 g/dL (6.0-8.3); Sodium 140 mmol/L (136-145)
[2019-04-01] MEDS: Apixaban 5 MG TAB PO SCH ×2 (08:46→20:06)
[2019-04-01] MEDS: Cyanocobalamin (Vitamin B-12) 1,000 MCG TAB PO SCH (08:46)
--- NOTE | 2019-04-01 10:25 | PDOC.HOSPP ---
- Subjective Encounter Date: 04/01/19 Encounter Time: 15:30 Subjective: Patient with decreased SOB, still quite weak but got up to the toilet with walker. - Objective Vital Signs & Weight: Vital Signs (12 hours) Temp Pulse Resp BP BP Pulse Ox 04/01/19 08:43 97.6 F 101 H 19 137/79 97 04/01/19 03:47 99.2 F 85 23 H 127/78 97 Weight Weight 185 lb 6.4 oz I&O: 03/31/19 04/01/19 04/02/19 06:59 06:59 06:59 Intake Total 1360 1210 Output Total 1200 1000 Balance 160 210 Result Diagrams: 04/01/19 04:20 04/01/19 04:20 Hospitalist ROS - Review of Systems Constitutional: denies: fever, chills Respiratory: denies: cough, shortness of breath Cardiovascular: denies: chest pain, palpitations, orthopnea Gastrointestinal: denies: nausea, vomiting, abdominal pain Neurological: reports: weakness - Medication Medications: Active Medications Generic Name Dose Route Start Last Admin Trade Name Jesusq PRN Reason Stop Dose Admin Apixaban 5 mg 04/01/19 09:00 04/01/19 08:46 Eliquis PO 5 mg BID GENI Administration Cyanocobalamin 1,000 mcg 03/30/19 09:00 04/01/19 08:46 Vitamin B-12 PO 1,000 mcg DAILY GENI Administration Metoprolol Succinate 25 mg 03/31/19 09:00 04/01/19 08:46 Toprol Xl PO 25 mg DAILY GENI Administration - Exam General Appearance: NAD Eye: anicteric sclera ENT: moist mucosa Heart: no murmur, no gallops, no rubs, irregular Respiratory: no wheezes, no ronchi Respiratory - other findings: dry crackles and rales in bilateral bases Gastrointestinal: soft, non-tender, non-distended, normal bowel sounds Psychiatric: normal affect, normal behavior, A&O x 3 Hosp A/P - Plan (1) Acute diastolic CHF (congestive heart failure) EF 50-55% DC'd po lasix given her hypotension Salt and fluid restricted diet Daily weights Strict I/Os (2) Atrial fibrillation Rate controlled on Toprol XL at 25 mg daily Case DW Dr. Cheung Patient and family counselled about NOACs. They requested DC warfarin and new meds Dr. Cheung recommended Eliquis 5 mg PO BID Eliquis started 04/01/2019. (3) Macrocytosis Folate level normal B12 borderline low On B12 supplementation (4) HTN (hypertension) DC'd lasix Continue Toprol XL 5. B 12 insufficiency Level of 233 that is low normal Continue PO supplementation 6. Idiopathic pulmonary fibrosis CT chest with IPF Pulm. on board, needs PFTs at some point RA sat low at rest and with movement, will arrange home O2 Will need outpatient pulm. follow up- patient goes to [facility] Likely home with home health and O2 tomorrow
--- NOTE | 2019-04-01 10:28 | PRG ---
DATE OF SERVICE: 04/01/2019 SUBJECTIVE: The patient is awake, alert, and in no distress. There are no acute complaints. OBJECTIVE: VITAL SIGNS: Temperature 97.6, pulse 101, respirations 19, O2 saturation 97% on 2 L, blood pressure 137/79. HEENT: Unremarkable. NECK: No adenopathy or JVD. LUNGS: Inspiratory crackles at the bases. CARDIAC: S1 and S2. Regular. ABDOMEN: Soft. EXTREMITIES: No edema. ASSESSMENT: Likely idiopathic pulmonary fibrosis based on comparison CT scan. PLAN: Serologies were sent off yesterday. PFTs have been ordered, but this could be done as an outpatient. In all likelihood, she is going to be continuing her care at the [facility]. From my standpoint, she is able to go home once home oxygen has been arranged. Job ID: [id number]
--- NOTE | 2019-04-01 13:53 | PQF ---
BELÉN BROWN RYAN ANDREW MD [id number] [facility]-294 [id number] CLINICAL DOCUMENTATION IMPROVEMENT CLARIFICATION FORM: ICD-10 Updated PLEASE DO AN ADDENDUM TO THE PROGRESS NOTE WITH ANY DOCUMENTATION UPDATES OR ADDITIONS AND CARRY THROUGH TO DC SUMMARY. THANK YOU. DATE: 04/01/2019 ATTN: DR. Jim SALAZAR Please exercise your independent, professional judgment in responding to the clarification form. Clinical indicators are provided on the bottom of this form for your review. Please check appropriate box(s): [ X ] Acute Respiratory Failure: [ X ] with Hypoxia[ ] with Hypercapnia [ ] Acute On Chronic Respiratory Failure: [ ] with Hypoxia [ ] with Hypercapnia [ ] Acute Respiratory Failure due to: (etiology) [ ] Chronic Respiratory Failure only [ ] with Hypoxia [ ] with Hypercapnia [ ] Respiratory Insufficiency [ ] Hypoxia [ ] Other diagnosis [ ] Unable to determine In addition, please specify: Present on Admission (POA): [ X ] Yes [ ] No [ ] Unable to determine For continuity of documentation, please document condition throughout progress notes and discharge summary. Thank You. CLINICAL INDICATORS - SIGNS / SYMPTOMS / LABS / RESULTS AND LOCATION IN MR 03/28 ED REPORT: PATIENT PRESENTS WITH C/O SOB X 3 DAYS AND DYSPNEA , O2 SAT 80 % RA > 98% NRB < 88-98% 2L/NC, RESP 18-27. RESPIRATORY ASSESSMENT FINDINGS INCLUDE RESPIRATORY EFFORT TACHYPNEIC AND PT SPEAKS IN SHORT PHRASES. 03/29 H&P (METTA) PT WAS RECENTLY DIAGNOSED WITH PULMONARY FIBROSIS RISK: DX PULMONARY FIBROSIS (PN /ASIM) 03/31 ADVANCED AGE (83), DX ACUTE DIASTOLIC CONGESTIVE HEART FAILURE (H&P/ METTA) TREATMENTS: PULMONOLOGY CONSULT ( ASIM/03/30) SUPPLEMENTAL OXYGEN (03/28-PRESENT) Acute Respiratory Failure: ABG pH < 7.35 or > 7.45; Decreased oxygen saturation (<90% room air or < 95% on oxygen); PCO2 > 50 mm Hg; PO2 < 60 mm Hg; Labored or rapid respirations ARDS: Dx Criteria [Painter ARDS]: Respiratory symptoms within one week of a known clinical insult (e.g. shock, infection, surgery, trauma) Bilateral opacities in CXR/Chest CT not due to CHF or fluid THANK YOU! [employer] (This form is maintained as a part of the permanent medical record) 2014 [employer], [employer]. All Rights Reserved [email or web address] [phone] MTDD
[2019-04-02 06:09] VITALS: BMI 26.3
[2019-04-02] MEDS: Apixaban 5 MG TAB PO SCH (08:58)
[2019-04-02] MEDS: Cyanocobalamin (Vitamin B-12) 1,000 MCG TAB PO SCH (08:58)
--- NOTE | 2019-04-02 08:59 | PDOC.HOSPP ---
- Subjective Encounter Date: 04/02/19 Encounter Time: 12:00 Subjective: Patient feeling well on O2. Got up to shower. Ready to go home. - Objective Vital Signs & Weight: Vital Signs (12 hours) Temp Pulse Resp BP BP Pulse Ox 04/02/19 08:55 97.6 F 90 18 104/56 L 97 04/02/19 03:26 97.4 F L 93 22 H 119/70 95 Weight Weight 183 lb 9.6 oz I&O: 04/01/19 04/02/19 04/03/19 06:59 06:59 06:59 Intake Total 1210 680 Output Total 1000 1125 Balance 210 -445 Result Diagrams: 04/01/19 04:20 04/01/19 04:20 Hospitalist ROS - Review of Systems Constitutional: denies: fever, chills Respiratory: denies: cough, dry, shortness of breath Cardiovascular: denies: chest pain, palpitations Gastrointestinal: denies: nausea, vomiting, abdominal pain - Medication Medications: Active Medications Generic Name Dose Route Start Last Admin Trade Name Jesusq PRN Reason Stop Dose Admin Apixaban 5 mg 04/01/19 09:00 04/01/19 20:06 Eliquis PO 5 mg BID GENI Administration Cyanocobalamin 1,000 mcg 03/30/19 09:00 04/01/19 08:46 Vitamin B-12 PO 1,000 mcg DAILY GENI Administration Metoprolol Succinate 25 mg 03/31/19 09:00 04/01/19 08:46 Toprol Xl PO 25 mg DAILY GENI Administration - Exam General Appearance: NAD Eye: anicteric sclera ENT: moist mucosa Heart: RRR, no murmur, no gallops, no rubs Respiratory: CTAB, no wheezes, no rales, no ronchi Gastrointestinal: soft, non-tender, non-distended, normal bowel sounds Psychiatric: normal affect, normal behavior, A&O x 3 Hosp A/P - Plan (1) Acute diastolic CHF (congestive heart failure) EF 50-55% DC'd po lasix given her hypotension Salt and fluid restricted diet Daily weights Strict I/Os (2) Atrial fibrillation Rate controlled on Toprol XL at 25 mg daily Case DW Dr. Cheung Patient and family counselled about NOACs. They requested DC warfarin and new meds Dr. Skye recommended Eliquis 5 mg PO BID Eliquis started 04/01/2019. (3) Macrocytosis Folate level normal B12 borderline low On B12 supplementation (4) HTN (hypertension) DC'd lasix Continue Toprol XL 5. B 12 insufficiency Level of 233 that is low normal Continue PO supplementation 6. Idiopathic pulmonary fibrosis CT chest with IPF Pulm. on board, needs PFTs at some point RA sat low at rest and with movement, will arrange home O2 Will need outpatient pulm. follow up- patient goes to [facility] Home with home health and O2 today
[2019-04-02 12:25] VITALS: TEMP 98.1
[2019-04-02 13:02] VITALS: BP 123/64
--- NOTE | 2019-04-02 16:00 | DIS ---
DATE OF ADMISSION: 03/28/2019 DATE OF DISCHARGE: 04/02/2019 PRIMARY CARE PHYSICIAN: [facility]. REASON FOR ADMISSION: Acute congestive heart failure. DIAGNOSES AT DISCHARGE: 1. Acute diastolic congestive heart failure, resolved. 2. Chronic atrial fibrillation. 3. Macrocytosis with borderline vitamin B12. 4. Hypertension. 5. Idiopathic pulmonary fibrosis. 6. Acute respiratory failure with hypoxia. PROCEDURES: 1. Bilateral venous Doppler ultrasounds of the lower extremities showing no evidence of DVT. 2. CT scan of the chest without contrast showing pulmonary parenchymal fibrotic changes consistent with interstitial pulmonary fibrosis as well as pulmonary arterial hypertrophy. 3. Echocardiogram showing an ejection fraction of 50% to 55%, and [id number] elevated pulmonary artery pressures, and mildly thickened aortic valve with decreased excursion. CONSULTATIONS: 1. Cardiology, Dr. Garcia. 2. Pulmonology, Dr. Coughlin. SUMMARY OF HOSPITAL COURSE: This is an 83-year-old white female with a known history of chronic atrial fibrillation on Coumadin therapy and hypertension, who presented with shortness of breath x2 weeks, who was found to be room air hypoxic in the emergency room. She was found to be volume overloaded, who was given Lasix with marked improvement in her shortness of breath issues. She was on Coumadin for her atrial fibrillation. She requested switching to one when she did have to check her blood work so frequently and that was done. The patient did have abnormal chest x-ray. She had CT scan done with the above results. Dr. Coughlin was consulted and diagnosed her with idiopathic pulmonary fibrosis. The patient remained in a room air hypoxic throughout her hospitalization even after clearing up congestive heart failure, so she is being sent home with home oxygen and that she is markedly improved and is ambulating and ready to go home with family and home and home health discharge management discharged home with Home Health. ACTIVITY: As tolerated. DIET: Fluid-restricted low-sodium diet. Home health occupational and physical therapy equipment supplies oxygen. FOLLOWUP: Follow up with primary care physician at [facility] in the next week and with pulmonology and Cardiology over at [facility] in the next month as well. HOME MEDICATIONS: 1. Eliquis 5 mg twice a day, 60 tablets dispensed. 2. Vitamin B12 of 1000 mcg daily 30 tablets dispensed. 3. Metoprolol succinate 25 mg p.o. daily 30 tablets dispensed. 4. Furosemide 20 mg p.o. daily. TIME SPENT: Arranging the details of this discharge took 35 minutes. Job ID: [id number]
[2019-04-04 11:50] LABS: ANA Symphony (Qualitative) Negative (Negative); ANA Symphony (Quantitative) 0.1 Ratio (< 0.7 Negative); CCP IgG Antibody 0.6 EliAU/mL (<7 Negative); EliA RAS New Method **** NEW METHOD ****; Rheumatoid Factor IgA Antibody 5.5 IU/mL (<14 Negative); Rheumatoid Factor IgM Antibody 6.9 IU/mL (<3.5 Negative); dsDNA IgG Antibody Less than 0.5 IU/mL (<10 Negative)
== END 2019-04-02 13:48 | disposition home health service (06) | DRG 291 ==
LOC: ERS 11:27 → 2NO 19:01
PROVIDERS: ADMIT Internal Medicine Sleep Medicine; ATTEND Internal Medicine Sleep Medicine
DX: I11.0 Hypertensive heart disease with heart failure (principal); I50.31 Acute diastolic (congestive) heart failure; J96.01 Acute respiratory failure with hypoxia; I48.20 Chronic atrial fibrillation, unspecified; D75.89 Other specified diseases of blood and blood-forming organs; J84.112 Idiopathic pulmonary fibrosis; Z96.653 Presence of artificial knee joint, bilateral; R00.0 Tachycardia, unspecified; E53.8 Deficiency of other specified B group vitamins; I95.9 Hypotension, unspecified; Z79.899 Other long term (current) drug therapy; Z79.01 Long term (current) use of anticoagulants; Z90.710 Acquired absence of both cervix and uterus; Z87.891 Personal history of nicotine dependence
CPT/HCPCS: 36415; 71045; 71250; 80048; 80053; 82607; 82746; 83520; 83735; 83880; 84443; 84484; 85025; 85610; 85730; 86038; 86200; 86225; 93005; 93306; 93798; 93970; 96374; J1644; J1940; J7050